=== PATIENT | male | born 1960 | race Caucasian/White ===

== ENCOUNTER 2018-10-11 21:05 | Emergency (ER) | payer OTHER ==
[~2018-10-11] VITALS: Ht 170.2 cm; Wt 65.0 kg
[2018-10-11 21:12] VITALS: Ht 170.2 cm; Wt 65.0 kg
--- NOTE | 2018-10-11 21:39 | ERD ---
ER Documentation Chief Complaint Chief Complaint BIB BLS AMBULANCE TO REPLACED DISLODGED GTUBE. 16F HPI 58-year-old male presents for dislodgment of 16 [place] G-tube happened earlier today. Patient is chronically G-tube dependent, he otherwise has not had a fever, no abdominal distention, no vomiting. Patient has no other complaints ROS All systems reviewed and are negative except as per history of present illness. PMhx/Soc History of Surgery: No Anesthesia Reaction: No Hx Neurological Disorder: No Hx Respiratory Disorders: Yes (pneumonia) Hx Cardiac Disorders: Yes (CHF) Hx Psychiatric Problems: Yes (schizophrenia) Hx Miscellaneous Medical Probl: Yes (renal failure,sepsis,HD TThSat,Permacath R chest) Smoking Status: Unknown if ever smoked Physical Exam Vitals Vital Signs Date Temp Pulse Resp B/P (MAP) Pulse Ox O2 O2 Flow FiO2 Time Delivery Rate 10/11/18 96.5 69 16 129/72 99 21:12 (91) Physical Exam Const: Afebrile, nontoxic Head: Atraumatic Eyes: Normal conjunctiva ENT: Normal external ears, nose and mouth. Neck: Resp: Normal respiratory effort Cardio: Abd: Soft, nontender nondistended, no rebound or guarding, G-tube site clean dry and intact. Skin: Back: Ext: Neur: Awake and alert Psych: Normal mood and affect Procedures/MDM 58-year-old presents for G-tube dislodgment, no other complaints, his G-tube was replaced without complication. At discharge the patient was in no distress. G-tube Insertion by me: Sterile technique, local prep and lubrication, time out performed. Location: Epigastrum Device: 60 [place] G-tube Technique: Chloe pressure with twisting motion. Balloon inflation Results: Gastric contents expressed. Compl: none X-ray Abdomen 1V Interpreted by me: Free Air: None Bowel Gas: Nonspecific Departure Diagnosis: Primary Impression: Encounter for feeding tube placement Condition: Stable AG RUIZ MD Oct 11, 2018 21:39
[2018-10-11 23:00] VITALS: BP 114/81; PULSE 65; RESP 18
== END 2018-10-11 23:36 | disposition home or self-care (01) ==
LOC: E/R 21:05
DX: K94.23 Gastrostomy malfunction (principal); R40.2142 Coma scale, eyes open, spontaneous, at arrival to emergency department; R40.2362 Coma scale, best motor response, obeys commands, at arrival to emergency department; R40.2242 Coma scale, best verbal response, confused conversation, at arrival to emergency department; I50.9 Heart failure, unspecified
CPT/HCPCS: 43761; 74018; Z7502; Z7610